=== PATIENT | female | born 1945 | race Caucasian/White ===

== ENCOUNTER 2022-03-20 06:10 | Day surgery (SDC) | payer MEDICARE, OTHER ==
[~2022-03-20 06:10] MED LIST: Lactated Ringers 1,000 ML IV SCH; Lidocaine 1%/Sod Bicarbonate in NS 8.4% 1 ML Syringe IDERM PRN; Morphine 8 MG, EPINEPHrine 0.3 MG, Cefuroxime 750 MG, Ketorolac 30 MG, Sodium Chloride ... PRN; Sodium Chloride 0.9% 10 ML Syringe FLUSH PRN; Sodium Chloride 0.9% 10 ML Syringe FLUSH SCH
[2022-03-20] MEDS ORDERED: Propofol 200 MG/20 ML SDV ONE (06:13)
[2022-03-20] MEDS ORDERED: Lidocaine 1% 5 ML VIAL ONE (06:14)
[2022-03-20] MEDS ORDERED: Midazolam 1 MG/ML 2 ML SDV ONE (06:14)
[2022-03-20] MEDS ORDERED: fentaNYL 100 MCG/2 ML SDV ONE ×2 (06:14→08:30)
[2022-03-20] MEDS ORDERED: ceFAZolin 2 GM Vial ONE (06:17)
[2022-03-20] MEDS ORDERED: Vancomycin 1 GM SDV ONE (06:18)
[2022-03-20] MEDS ORDERED: ePHEDrine 50 MG/ML SDV ONE (07:05)
[2022-03-20] MEDS ORDERED: Lactated Ringers 1,000 ML ONE ×2 (07:18→08:19)
[2022-03-20] MEDS ORDERED: fentaNYL 100 MCG/2 ML SDV IVPUSH PRN (07:28)
[2022-03-20] MEDS ORDERED: Ondansetron 4 MG/2 ML SDV IVPUSH PRN (07:28)
[2022-03-20] MEDS ORDERED: HYDROmorphone 0.5 MG/0.5 ML Syringe IVPUSH PRN (07:28)
[2022-03-20] MEDS ORDERED: Phenylephrine HCl In 0.9% NaCl 1 MG/10 ML Vial ONE (07:57)
[2022-03-20] MEDS ORDERED: Ondansetron 4 MG/2 ML SDV ONE (08:21)
[2022-03-20] MEDS ORDERED: Acetaminophen/HYDROcodone 325-5 MG Tab PO ONE (09:48)
== END 2022-03-20 13:00 | disposition home or self-care (01) ==
LOC: JD.SDS 06:10
PROVIDERS: ATTEND Orthopaedic Surgery
DX: M16.12 Unilateral primary osteoarthritis, left hip (principal); I10 Essential (primary) hypertension; E78.00 Pure hypercholesterolemia, unspecified; F17.210 Nicotine dependence, cigarettes, uncomplicated; D47.3 Essential (hemorrhagic) thrombocythemia; E03.9 Hypothyroidism, unspecified; Z79.899 Other long term (current) drug therapy; Z98.890 Other specified postprocedural states
CPT/HCPCS: 0055T; 27130; 73501; 86850; 86900; 86901; 97110; 97116; 97161; C1713; C1776; J0171; J0690; J0697; J1885; J2250; J2270; J2405; J2704; J3010; J3370; J7120; 01214; 99100